=== PATIENT | male | born 1940 ===

== ENCOUNTER 2024-08-11 12:10 | Outpatient (AMB) | payer MEDICARE, SELFPAY ==
--- NOTE | 2024-08-11 12:15 | A.OFFVIS_ITS ---
Vital Signs 08/11/24 12:21 Height 6 ft Weight 177 lb BMI 24.0 BP 116/59 L Blood Pressure Location Lt brachial Position Sitting Pulse 68 Intake Visit Reasons: Weigh loss/[place], nocturnal rectal bleeding Intake Note: Patient new consult for weight loss, diarrhea and rectal bleeding. Patient cc: diarrhea and weight loose. [employer] Required: No Accompanied by: Self / Same As Patient Allergies No Known Allergies Allergy (Verified 08/11/24 12:13) HPI HPI Weigh loss/[place], nocturnal rectal bleeding: Details: HPI 84 yr old m here for assessment for abn bowel habits He was having abn stools since February he was having diarrhea and incontinence he has not seen blood in stool no n/v no abdominal pain he stopped taking fruit juice and seems to have helped now weight loss appetite is good last colonsocopy ?this year and was normal --[facility] ROS: Constitutional : No Weight loss, No Fever, No Chills ENT/Mouth : No sore throat, No Rhinorrhea Eyes: No Swelling, No Redness Cardiovascular : No Chest Pain, No SOB, No Edema Respiratory : No Cough, No Sputum, No Wheezing Gastrointestinal : see HPI Genitourinary : NO Dysuria, No Urinary Frequency, No Hematuria, No Urgency Musculoskeletal : + joint pain, No Myalgias, No Joint Swelling Skin : No Skin Lesions, No rash Neuro : No Weakness, No Numbness, No Dizziness, No Headache Psych : No Anxiety/Panic, No Depression Heme/Lymph: No Bruising, No Lymphadenopathy Endocrine : No Polyuria, No Polydipsia All other systems reviewed and are negative. Medical History DM, HLP, Surgical History colonoscopy Family History no FH of CRC Social History no alcohol, non smoker, no drug use EXAM: GENERAL: The patient is well developed and nontoxic. VITAL SIGNS:see workflow HEENT: Nonicteric sclerae, PERRLA, EOMI. Oropharynx clear. Moist mucous membranes. Conjunctivae appear well perfused. No thyroid mass. CHEST: Chest wall is nontender. HEART: Regular rate and rhythm without murmurs. LUNGS: Clear to auscultation bilaterally. ABDOMEN: Soft, positive bowel sounds, nontender, no organomegaly.no flank tenderness SKIN: No rash, no excessive bruising, petechiae, or purpura. NEUROLOGIC: Cranial nerves II-XII intact without motor/sensory deficit. Psych: normal affect A/P: 1/ Abn bowel habits, he feesl things are improving, and wants to hold off imaging, ddX: microscopic colitis, neoplasia, celiac, medication related PLAN: 1/ Recommended CT A/P with PO contrast and EGD but he wants to hold 2/ he might need rept colonoscopy with bx He will come back next visit or let me know if sx worsen PFSH Surgical History (Updated 08/11/24 @ 12:20 by Lisa Ross) Hx of tonsillectomy Hx of bilateral inguinal hernia repair Hx of colonoscopy Social History (Updated 08/11/24 @ 12:16 by Lisa Ross) Household Members: Family Alcohol intake: never Patient Tobacco Use Status: Never used Tobacco Assessment & Plan Assessment & Plan (1) Abnormal bowel habits: Code(s): R19.8 - Other specified symptoms and signs involving the digestive system and abdomen Category: Medical Plan: see above Coding Level of Care Code New Pt Level 4 (31622) Diagnoses Abnormal bowel habits R19.8
[2024-08-11 12:21] VITALS: BP 116/59; PULSE 68; BMI 24.0
== END 2024-08-11 13:34 | disposition home or self-care (01) ==
PROVIDERS: Visit Provider Internal Medicine Gastroenterology
DX: R19.8 Other specified symptoms and signs involving the digestive system and abdomen (principal)
CPT/HCPCS: 99204

== ENCOUNTER → 2024-08-11 12:10 | Outpatient (BNVA) | payer MEDICARE, SELFPAY | PROVIDERS: Visit Provider Internal Medicine Gastroenterology | DX: R19.8 Other specified symptoms and signs involving the digestive system and abdomen (principal) | CPT/HCPCS: 99202 ==